=== PATIENT | female | born 1990 | race Caucasian/White ===

== ENCOUNTER 2020-07-17 23:31 | Inpatient (IN) ==
[2020-07-18] MEDS ORDERED: OXYTOCIN 30 UNITS/500 ML BAG IV PRN ×3 (00:10→09:24)
[2020-07-18] MEDS ORDERED: BUTORPHANOL TARTRATE 1 MG/ML VIAL IV PRN (00:12)
[2020-07-18] MEDS: LACTATED RINGER'S 1,000 ML IV PRN ×2 (00:26→02:38)
[2020-07-18 00:33] LABS: Hematocrit (blood only) 38.7 % (37-47); Hemoglobin 13.3 g/dL (12.0-16.0); Mean Corpuscular Hemoglobin 31.5 pg (25-34); Mean Corpuscular Volume 91.7 fL (80-100); Mean Platelet Volume 10.7 fL (7.4-10.4); Platelet Count 137 K/uL (130-400); RDW Coefficient of Variation 13.8 % (11.5-14.5); RDW Standard Deviation 45.7 fL (36.4-46.3); Red Blood Count 4.22 M/uL (4.2-5.4); White Blood Count 13.76 K/uL (4.8-10.8)
[2020-07-18 00:44] LABS: Mean Corpuscular Hgb Conc 34.4 g/dL (32-36)
[2020-07-18] MEDS ORDERED: fentaNYL 2MCG/ML ROPIV 1.25MG/ML 100 ML BAG EPI ONE (02:00)
[2020-07-18] MEDS ORDERED: fentaNYL citrate 100 MCG/2 ML VIAL ONE (02:00)
[2020-07-18] MEDS ORDERED: BUPIVACAINE 0.25% 30 ML VIAL ONE (02:00)
[2020-07-18] MEDS ORDERED: ePHEDrine sulfate 50 MG/ML AMP ONE (02:00)
[2020-07-18] MEDS ORDERED: LIDOCAINE HCL 2% MPF (LOCAL) 5 ML VIAL INFIL ONE (02:39)
--- NOTE | 2020-07-18 02:51 | Anesthesiology Consultation ---
Date of Service July 18, 2020 Assessment & Plan Chart Review Chart Review: Acceptable Risk for Labor Epidural Consults Requested none History Height/Weight Height: 5 ft 2 in Weight: 67.585 kg Allergies Allergy/AdvReac Type Severity Reaction Status Date / Time No Known Allergies Allergy Verified 07/13/20 08:59 Medications Home Medications Medication Instructions Recorded Confirmed Last Taken docusate sodium 100 mg capsule 100 mg PO DAILY PRN 11/28/19 07/18/20 07/15/20 08:00 prenat.vits,matt,zcs-zrur-asrsv 1 tab PO DAILY 11/28/19 07/18/20 07/17/20 09:00 Active Medications Generic Name Dose Route Start Last Admin Trade Name Freq PRN Reason Stop Dose Admin Lactated Ringer's 1,000 mls @ 125 mls/hr 07/18/20 00:10 07/18/20 02:38 Lr IV 07/20/20 00:09 125 mls/hr .Q8H PRN Administration L&D Protocol Protocol Past Medical History Medical History Encounter for anatomic survey Murmur, cardiac as a child; no recent problem Past Family History Family History Grandmother (Maternal) Diabetes Grandfather (Maternal) Diabetes Colorectal cancer Lung cancer Grandfather (Paternal) Lung cancer Mother Twin Other Lung disease Past Surgical History Surgical History S/P wisdom tooth extraction Social History Smoking Status: Never smoker Hx Alcohol Use: No Hx Substance Use: No Physical Exam Vital Signs Last Vital Signs Temp 36.5 C 07/17/20 23:47 Pulse 70 07/18/20 02:47 Resp 20 07/17/20 23:47 BP 105/62 07/18/20 02:47 Pulse Ox 100 07/18/20 02:45 Testing Laboratory Results 07/18/20 00:22
[2020-07-18] MEDS ORDERED: ePHEDrine sulfate 50 MG/ML AMP IV PRN (02:53)
[2020-07-18] MEDS ORDERED: fentaNYL 2MCG/ML ROPIV 1.25MG/ML 100 ML BAG EPI PRN (02:53)
[2020-07-18] MEDS ORDERED: DiphenhydrAMINE HCL 50 MG/ML VIAL IV PRN (02:53)
[2020-07-18] MEDS ORDERED: NALOXONE HCL 1 MG in SODIUM CHLORIDE 0.9% 1000ML 1,000 ML IV PRN (02:53)
[2020-07-18] MEDS ORDERED: NALOXONE HCL 0.4 MG/1 ML VIAL/CARP IV PRN (02:53)
--- NOTE | 2020-07-18 03:33 | History & Physical Report ---
Date of Service July 18, 2020 Assessment & Plan (1) Normal labor: (2) Supervision of normal first : (3) Need for rhogam due to Rh negative mother: pt has been admitted and comfortable with epidural. will see if arom helps labor pattern and if needed add pitocin augmentation. fhts categ 1. Admission and Anticipated Discharge Date Admission Date: July 18, 2020 History of Present Illness Primary Care Provider: Giovanny Griffith MD 30yo at 40+wks brad presents to L&D with above cc. She was here earlier yesterday with ctx and sent home at 1.5cm. She called with stronger ctx and came in and was 6cm per nurse. Desired and received epidural. PNC c/b 1. panorama, no result, amino normal, given confined placenta mosacism, rec to have 28wk growth us by mfm 2. rh neg, had rhogam, eval pp 3. postdates induction scheduled for 07/22 if undelivered. 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 Encounter for screening laboratory testing for COVID-19 virus Allergies Allergy/AdvReac Type Severity Reaction Status Date / Time No Known Allergies Allergy Verified 07/13/20 08:59 Home Medications Home Medications Medication Instructions Recorded Confirmed Type docusate sodium 100 mg capsule 100 mg PO DAILY PRN 11/28/19 07/18/20 History prenat.vits,matt,jet-roov-uhwky 1 tab PO DAILY 11/28/19 07/18/20 History Patient History Medical History Encounter for anatomic survey Murmur, cardiac as a child; no recent problem Surgical History S/P wisdom tooth extraction Family History Grandmother (Maternal) Diabetes Grandfather (Maternal) Diabetes Colorectal cancer Lung cancer Grandfather (Paternal) Lung cancer Mother Twin Other Lung disease Social History (Updated 11/28/19 @ 10:09 by Sun Johnson) Smoking Status: Never smoker Hx Alcohol Use: No Hx Substance Use: No Preferred Language: Belarusian Communication Ability: Effective Tableau Analyst Required: No Beliefs That Will Affect Care: None marital status: marital status details: Ruben Menjivar (29) [phone] Current Living Situation: Spouse Current Living Situation Comment: Lives with spouse, current occupational status: employed current occupation: PA @ [employer] Other Information That Helps Us Care for You: No Feels Safe at Home: Yes Assistive Devices: None Review of Systems see hpi Physical Exam Constitutional: WD/WN, vitals as above Psychiatric: A+Ox3, euthymic affect Genitourinary: OB Exam Abdomen: + estimated weight (6-7#) Manual OB Exam: + cervical dilation (7), + cervical effacement 100%, + station 0 and + amniotic fluid (AROM) clear OB Exam Monitor Tracing: + external FHT monitor used (110 mod variability, reactive), + external uterine monitor used (q2-5), + category I and + normal FHT variability Results & Data ([facility]) Vital Signs (Past 12 Hours) Vital Signs Temp Pulse Resp BP Pulse Ox 07/18/20 03:26 72 116/71 07/18/20 03:25 81 97 07/18/20 03:23 71 117/71 07/18/20 03:20 62 118/72 97 07/18/20 03:17 68 106/70 07/18/20 03:15 59 L 97 07/18/20 03:14 62 117/76 07/18/20 03:11 64 111/73 07/18/20 03:10 61 98 07/18/20 03:08 77 105/67 07/18/20 03:06 62 113/70 07/18/20 03:05 62 98 07/18/20 03:02 78 105/71 07/18/20 03:00 64 98 07/18/20 02:59 80 107/70 07/18/20 02:56 65 113/72 07/18/20 02:55 65 99 07/18/20 02:53 71 111/65 07/18/20 02:50 78 113/65 99 07/18/20 02:47 70 105/62 07/18/20 02:45 70 100 07/18/20 02:44 73 108/64 07/18/20 02:41 71 110/70 07/18/20 02:40 70 100 07/18/20 02:39 67 103/64 07/18/20 02:35 83 106/56 L 100 07/18/20 02:32 79 105/66 07/18/20 02:30 75 100 07/18/20 02:29 77 119/74 07/18/20 02:25 83 121/74 100 07/17/20 23:47 97.7 F 75 20 117/80 07/17/20 23:44 75 117/80 Coding Level of Care Code None Diagnoses Normal labor O80; Z37.9 Supervision of normal first Z34.00 Need for rhogam due to Rh negative mother Z29.13
--- NOTE | 2020-07-18 08:56 | Labor Progress Brief Note ---
Date of Service July 18, 2020 Subjective Reason For Note: Routine Evaluation feeling some lower pressure, not rectal pressure Assessment & Plan (1) Normal labor: (2) Need for rhogam due to Rh negative mother: begin 2nd stage. fhts categ 2. c/w pitocin. Admission and Anticipated Discharge Date Admission Date: July 18, 2020 Physical Exam Constitutional: WD/WN, vitals as above Genitourinary: Manual OB Exam: + cervical dilation 10 cm, + cervical effacement 100% and + station + 3 OB Exam Monitor Tracing: + external FHT monitor used (115 mod variability, variables, ), + external uterine monitor used (q2-5 pit at 5), + category II and + normal FHT variability Results & Data ([facility]) Vital Signs (Past 12 Hours) Vital Signs Temp Pulse Resp BP Pulse Ox 07/18/20 08:50 75 100 07/18/20 08:45 106 H 100 07/18/20 08:42 96 H 134/82 07/18/20 08:40 87 100 07/18/20 08:35 79 98 07/18/20 08:30 72 100 07/18/20 08:28 78 116/61 07/18/20 08:25 72 100 07/18/20 08:20 76 100 07/18/20 08:15 74 100 07/18/20 08:12 72 113/59 L 07/18/20 08:10 74 100 07/18/20 08:05 75 100 07/18/20 08:00 75 100 07/18/20 07:57 84 109/63 07/18/20 07:55 79 100 07/18/20 07:50 83 100 07/18/20 07:45 77 100 07/18/20 07:43 72 110/63 07/18/20 07:40 83 100 07/18/20 07:35 84 100 07/18/20 07:30 90 100 07/18/20 07:27 82 112/68 07/18/20 07:25 75 100 07/18/20 07:20 76 100 07/18/20 07:15 84 100 07/18/20 07:12 98.1 F 77 20 117/68 07/18/20 07:10 77 100 07/18/20 07:05 84 100 07/18/20 07:00 82 100 07/18/20 06:59 85 120/57 L 07/18/20 06:55 98 H 100 07/18/20 06:50 83 100 07/18/20 06:45 74 100 07/18/20 06:42 73 124/67 07/18/20 06:40 82 100 07/18/20 06:35 102 H 100 07/18/20 06:30 82 100 07/18/20 06:27 101 H 130/86 07/18/20 06:25 73 100 07/18/20 06:20 72 99 07/18/20 06:15 79 99 07/18/20 06:12 81 126/80 07/18/20 06:10 75 99 07/18/20 06:05 82 100 07/18/20 06:00 98.2 F 76 100 07/18/20 05:58 74 119/77 07/18/20 05:55 74 100 07/18/20 05:50 77 99 07/18/20 05:45 70 99 07/18/20 05:42 69 117/78 07/18/20 05:40 75 97 07/18/20 05:35 72 97 07/18/20 05:30 62 97 07/18/20 05:28 68 117/76 07/18/20 05:25 67 97 07/18/20 05:20 69 96 07/18/20 05:15 64 98 07/18/20 05:12 71 114/72 07/18/20 05:10 67 98 07/18/20 05:05 74 100 07/18/20 05:00 70 100 07/18/20 04:57 67 111/69 07/18/20 04:55 67 100 07/18/20 04:50 71 100 07/18/20 04:45 77 100 07/18/20 04:44 64 118/73 07/18/20 04:40 66 100 07/18/20 04:35 80 99 07/18/20 04:30 65 98 07/18/20 04:27 68 114/72 07/18/20 04:25 66 97 07/18/20 04:20 66 96 07/18/20 04:15 65 97 07/18/20 04:13 63 117/72 07/18/20 04:10 62 97 07/18/20 04:05 66 97 07/18/20 04:00 69 97 07/18/20 03:57 69 114/72 07/18/20 03:55 68 95 07/18/20 03:50 70 95 07/18/20 03:45 98.1 F 64 95 07/18/20 03:42 62 120/74 07/18/20 03:40 62 95 07/18/20 03:35 64 96 07/18/20 03:30 64 97 07/18/20 03:26 72 116/71 07/18/20 03:25 81 97 07/18/20 03:23 71 117/71 07/18/20 03:20 62 118/72 97 07/18/20 03:17 68 106/70 07/18/20 03:15 59 L 97 07/18/20 03:14 62 117/76 07/18/20 03:11 64 111/73 07/18/20 03:10 61 98 07/18/20 03:08 77 105/67 07/18/20 03:06 62 113/70 07/18/20 03:05 62 98 07/18/20 03:02 78 105/71 07/18/20 03:00 64 98 07/18/20 02:59 80 107/70 07/18/20 02:56 65 113/72 07/18/20 02:55 65 99 07/18/20 02:53 71 111/65 07/18/20 02:50 78 113/65 99 07/18/20 02:47 70 105/62 07/18/20 02:45 70 100 07/18/20 02:44 73 108/64 07/18/20 02:41 71 110/70 07/18/20 02:40 70 100 07/18/20 02:39 67 103/64 07/18/20 02:35 83 106/56 L 100 07/18/20 02:32 79 105/66 07/18/20 02:30 75 100 07/18/20 02:29 77 119/74 07/18/20 02:25 83 121/74 100 07/17/20 23:47 97.7 F 75 20 117/80 07/17/20 23:44 75 117/80 Coding Level of Care Code None Diagnoses Normal labor O80; Z37.9 Need for rhogam due to Rh negative mother Z29.13
[2020-07-18] MEDS ORDERED: HYDROCORTISONE ACETATE 25 MG SUPP PR PRN (09:24)
[2020-07-18] MEDS ORDERED: SUPERCREAM 0.870% 15 GM JAR EXT PRN (09:24)
[2020-07-18] MEDS ORDERED: DIPHTHERIA/TETANUS/PERTUSSIS 0.5 ML SYR/VIAL IM ONE (09:24)
[2020-07-18] MEDS ORDERED: ACETAMINOPHEN 325 MG TAB PO PRN (09:24)
[2020-07-18] MEDS ORDERED: OXYCODONE/ACETAMINOPHEN 5mg/325mg TAB PO PRN (09:24)
[2020-07-18] MEDS ORDERED: BENZOCAINE 20% AER SPR 82.5 GM CAN EXT PRN (09:24)
--- NOTE | 2020-07-18 09:26 | Delivery Summary ---
Vaginal Delivery Summary Date of Service July 18, 2020 The patient dilated to complete and pushed to deliver a viable female A pgars 8 and 9 via over partial 3rd degree perineal laceration. Mouth and nose bulb suctioned at perineum. Shoulders and body delivered with ease. Infant was vigorous and crying at . Cord clamped at 30 seconds of life and infant to maternal abdomen where the cord was then doubly clamped and cut. Placenta delivered spontaneously and intact, three-vessel cord. Hemostasis achieved with dilute pitocin and uterine massage. Cervix and sulci intact. Laceration repaired in layers with 2-0 and 3-0 vicryl in usual fashion. EBL 300 cc. Mother and baby stable recovery. [facility] Vaginal Delivery Charge Vaginal Delivery Codes: 22001 global code for the antepartum, delivery, and post-
[2020-07-18] MEDS ORDERED: OXYTOCIN 20 UNITS in LACTATED RINGER'S 1,000 ML IV SCH (10:15)
--- NOTE | 2020-07-18 10:50 | Anesthesia Procedure Note ---
Date of Service July 18, 2020 Anesthesia Post Epidural Note Vital Signs Vital Signs: Temp Pulse Resp BP Pulse Ox 98.1 F 76 20 104/63 100 07/18/20 07:12 07/18/20 10:45 07/18/20 07:12 07/18/20 10:36 07/18/20 10:45 Notes Mental Status: alert / awake / arousable and participated in evaluation Nausea / Vomiting: adequately controlled Pain: adequately controlled Airway Patency, RR, SpO2: stable & adequate BP & HR: stable & adequate Hydration State: stable & adequate Neuraxial Anesthesia: was administered and sensory block is resolving Anesthetic Complications: no major complications apparent and Pt Satisfied with anesthetic care Epidural: Removed without complications and With tip intact
[2020-07-18] MEDS: IBUPROFEN 600 MG TAB PO PRN (18:36)
[2020-07-18] MEDS: DOCUSATE SODIUM 100 MG CAP PO SCH (20:51)
--- NOTE | 2020-07-19 06:46 | Obstetrical Progress Note ---
Date of Service July 19, 2020 Assessment & Plan (1) Normal labor: (2) Need for rhogam due to Rh negative mother: stable, doing well. baby rh neg. she may want to go home later today if breast feeding improves today. instructions reviewed in case. Day #:: 1 Subjective Ambulation: ambulating normally Voiding: no voiding problems Diet Tolerance:: regular diet Lochia:: Small Feeding Type:: breast feeding she does not feel pain in bottom, just achy all over. Physical Exam Constitutional WD/WN, vitals as above Respiratory normal respiratory effort, lungs clear to auscultation Cardiovascular Rate/Rhythm: regular rate and regular rhythm Gastrointestinal (Abdomen) Inspection/Auscultation: abdomen normal to inspection Percussion/Palpation: abdomen soft Fundus firm 2cm down Musculoskeletal nt calves no edema Neurologic grossly normal Psychiatric A+Ox3, euthymic affect Results & Data ([facility]) Vital Signs (Past 12 Hours) Vital Signs Temp Pulse Resp BP Pulse Ox 07/19/20 04:10 97.5 F L 60 16 103/63 100 07/18/20 23:40 97.9 F 66 16 109/69 99 07/18/20 18:50 98.1 F 71 16 118/76 100
[2020-07-19] MEDS: IBUPROFEN 600 MG TAB PO PRN ×2 (08:38→20:12)
[2020-07-19] MEDS: DOCUSATE SODIUM 100 MG CAP PO SCH ×2 (08:38→20:11)
--- NOTE | 2020-07-20 05:15 | Obstetrical Progress Note ---
Date of Service July 20, 2020 Assessment & Plan (1) Supervision of normal first : S/p Day 2 - Feels well today. Eating well, voiding well, ambulating well. - Pain well-controlled with ibuprofen 600mg Q4H PRN. - Vital signs reviewed and WNL. - Hemoglobin reviewed. 13.3 (pre-) - Blood Type: A- (s/p Rhogam at 28 weeks), antibody negative, GBS negative, Rubella Immune, COVID-19 negative - Continue routine post- care: encourage ambulation, monitor and control pain with Motrin PRN, continue regular OB diet, monitor lochia - Encourage breast feeding. - Pt counselled on discharge instructions today - After discharge, will have 6-wk follow-up with Dr. Beckett Admission and Anticipated Discharge Date Admission Date: July 18, 2020 Supervising Physician Co-Signing Physician Notes Resident Physician Supervision Note: I was present with Dr. Mccauley during the history and exam. I discussed the case with the resident and agree with the findings and plan as documented in the note. Any exceptions or clarifications are listed here: None. Doing well and meeting all pp milestones. VSS, exam wnl. Stable for discharge home Documented By: Fany Sahu MD Subjective HPI Mariangel Menjivar is a 30 y/o female who is PPD 2 spontaneous vaginal delivery at 40 4/7 weeks. She reports feeling well overall this morning. No abdominal cramping and 0/10 pain well managed on analgesics. Voiding well. Tolerating meals overnight without difficulty. Patient has been able to ambulate some. passing gas and had bowel movement. Has persistent lochia with some improvement this morning. Currently . Review of Systems Review of Systems: ROS Denies fever or chills. Denies shortness of breath or cough. Denies chest pain. Denies breast pain. Denies dysuria. Denies leg pain or leg swelling. Physical Exam Physical Exam: PE General: Alert, oriented. No acute distress. Cardiac: Regular rate and rhythm. No murmurs. Respiratory: Clear to auscultation bilaterally a/p, no wheezes/rales/rhonchi. No increased work of breathing. Symmetrical chest rise. No respiratory distress. Abdomen: Soft, nontender, nondistended. Bowel sounds present. Uterus: Uterine fundus firm, palpable 2 cm below umbilicus. Lower Extremities: No lower extremity edema or swelling. No deep calf pain. Reinier's negative bilaterally. Results & Data ([facility]) Vital Signs (Past 12 Hours) Vital Signs Temp Pulse Resp BP 07/19/20 23:45 36.8 C 62 18 108/69 07/19/20 20:50 36.9 C 74 18 114/74 Resident Activity Tracking Resident Involvement: Resident Care Provided Care Provided: OB Delivery
[2020-07-20] MEDS: IBUPROFEN 600 MG TAB PO PRN (08:55)
[2020-07-20] MEDS: DOCUSATE SODIUM 100 MG CAP PO SCH (08:55)
== END 2020-07-20 13:12 | disposition home or self-care (01) | DRG 768 ==
LOC: OPB 23:31 → 4S1 23:32 → 4S2 07-18 13:53

== ENCOUNTER 2023-09-14 19:27 | Inpatient (IN) ==
[2023-09-14] MEDS ORDERED: OXYTOCIN 30 UNITS/NSS 30 UNITS/500 ML BAG IV PRN ×2 (19:59→23:26)
[2023-09-14] MEDS ORDERED: LACTATED RINGER'S 1,000 ML IV PRN (19:59)
[2023-09-14] MEDS ORDERED: LIDOCAINE 1% LOCAL 20 ML VIAL INFIL PRN (19:59)
--- NOTE | 2023-09-14 20:02 | History & Physical Report ---
Date of Service September 14, 2023 Assessment & Plan (1) Normal labor: Plan admit for labor, expectantly manage. fetus category one. epidural on demand. anticipate . History of Present Illness Chief Complaint: contractions Primary Care Provider: Giovanny Griffith MD Patient is a 33yowf with iup at 40 0/7 weeks who presents to labor and delivery complaining of increasing, painful contractions. Notes no vb/lof. +fm. and Delivery Plans Rh neg -needs rhogam -Rhogam given 06/22/23 - SP OB Labs: Blood Type A Negative 02/16/23 Antibody Screen NEGATIVE 06/22/23 Hemoglobin 12.2 g/dl (12.0-16.0) 06/22/23 Hematocrit 35.1 % (37.0-47.0) L 06/22/23 Mean Corpuscular Volume 90.5 fL (80.0-100.0) 02/16/23 Platelet Count 199 K/uL (130-400) 02/16/23 Rubella IgG Antibody Immune (Immune) 02/16/23 Rapid Plasma Reagin Nonreactive (Nonreactive) 02/16/23 Hepatitis B Surface Antigen Neg (Neg) 12/05/19 Hepatitis B Surface Antigen. NON-REACTIVE (NON-REACTIVE) 02/16/23 Hepatitis C Antibody (EIA) NON-REACTIVE (NON-REACTIVE) 02/16/23 HIV (1&2) Ab and P24 Ag, 4th Gener Neg (Neg) 12/05/19 HIV (1&2) Ag and Ab Confirmation NON-REACTIVE (NON-REACTIVE) 02/16/23 Glucose 1 Hour 50 gm Load 119 mg/dl (70-130) 06/22/23 Maternal Serum Alpha Fetoprotein 26.6 ng/mL 01/28/20 OB Optional Labs: Chlamydia trachomatis RNA Not Detected (NotDetected) 02/16/23 Neisseria gonorrhoeae RNA Not Detected (NotDetected) 02/16/23 Alpha Fetoprotein Triple Screen SEE NOTE 01/28/20 Labs Reviewed: neg cf/sma 2020 - sln Declines cfdna--mln gbs neg afp neg Allergies Allergy/AdvReac Type Severity Reaction Status Date / Time No Known Allergies Allergy Verified 09/14/23 19:39 Home Medications Medication Instructions Recorded Confirmed Type docusate sodium 100 mg capsule 100 mg PO DAILY PRN Constipation 11/28/19 09/14/23 History (Colace) prenat.vits,matt,lkv-ruhn-afcit 1 tab PO QAM 05/30/22 09/14/23 History Patient History Medical History (Updated 09/14/23 @ 20:06 by Sloane Bruce MD, FACOG) COVID Bleeding in early Asthma excercise induced asthma while in highschool, no issues since, requires no meds History of chicken pox Need for rhogam due to Rh negative mother Murmur, cardiac as a child; no recent problem Surgical History S/P dilation and curettage S/P wisdom tooth extraction Family History Grandmother (Maternal) Diabetes Grandfather (Maternal) Diabetes Colorectal cancer Grandfather (Paternal) Lung cancer Mother Twin Grandmother (Paternal) Lung disease Other Cancer Denies family history of Ovarian cancer Breast cancer Social History Smoking Status: Never smoker Second Hand Exposure: No; Do You Dip or Chew Tobacco: No; Hx Alcohol Use: No Hx Substance Use: No Preferred Language: Bulgarian Communication Ability: Effective Visual Impairment: No Limitations Hearing Ability: Normal Care Information Associate Required: No Beliefs That Will Affect Care: None marital status: marital status details: Ruben Menjivar (31) [phone] Current Living Situation: Spouse Current Living Situation Comment: Lives with spouse, and child. current occupational status: employed current occupation: PA @ [employer] Other Information That Helps Us Care for You: No Feels Safe at Home: Yes Safety Concerns: Feels Safe At This Time Assistive Devices: Contacts and Glasses OB History Past Pregnancies Del. Date GA wks Lbr Lgth wt Sex Type del Anes Place Del Prov ? Comment 07/18/20 40 6lbs 7.9oz F Ep idural [facility] Dr Beckett No 05/26/22 10 Aborted-Spontaneous 08/22/22 5 Aborted-Spontaneous [employer] History noncontributory Physical Exam Constitutional: WD/WN, vitals as above Gastrointestinal (Abdomen): soft, gravid, nt Psychiatric: A+Ox3, euthymic affect Genitourinary: cx--4-5/90/-s toco==q3-5min efm--110-115 with mod variabiltiy, accels to 160s, no decels Results & Data Vital Signs (Past 12 Hours) Vital Signs Temp Pulse Resp BP 09/14/23 19:40 36.8 C 66 18 124/80 09/14/23 19:35 66 124/80 Coding Level of Care Code None Diagnoses Normal labor O80; Z37.9
[2023-09-14 20:33] LABS: Hemoglobin 12.9 g/dl (12.0-16.0); Mean Corpuscular Hemoglobin 30.5 pg (25.0-34.0); Mean Corpuscular Hgb Conc 33.9 g/dL (32.0-36.0); Mean Corpuscular Volume 89.8 fL (80.0-100.0); Mean Platelet Volume 10.2 fL (9.4-12.4); Platelet Count 153 K/uL (130-400); RDW Coefficient of Variation 13.8 % (11.5-14.5); Red Blood Count 4.23 M/uL (4.20-5.40); White Blood Count 12.36 K/ul (4.8-10.8)
[2023-09-14] MEDS ORDERED: fentaNYL citrate PF 100 MCG/2 ML VIAL ONE (20:41)
[2023-09-14] MEDS ORDERED: ePHEDrine sulfate 50 MG/ML AMP ONE (20:41)
[2023-09-14] MEDS ORDERED: BUPIVACAINE 0.25% PF 30 ML VIAL ONE (20:41)
[2023-09-14] MEDS ORDERED: LIDOCAINE 2%/EPINEPHRINE 1:200,000 20 ML PF ONE (20:41)
[2023-09-14] MEDS ORDERED: fentANYL 2 MCG/ML BUPIVacaine 0.125%-NSS 100ML BAG ONE (20:41)
[2023-09-14] MEDS ORDERED: SODIUM CHLORIDE 0.9% PF INJ 10 ML VIAL ONE (20:41)
[2023-09-14] MEDS ORDERED: ePHEDrine sulfate 50 MG/ML AMP IV PRN (20:57)
[2023-09-14] MEDS ORDERED: BUPIVACAINE 0.25% PF 30 ML VIAL EPI STA (20:57)
[2023-09-14] MEDS ORDERED: LIDOCAINE 2%/EPINEPHRINE 1:200,000 20 ML PF EPI STA (20:57)
[2023-09-14] MEDS ORDERED: ONDANSETRON INJ 2 MG/ML 2 ML VIAL IV PRN (20:57)
[2023-09-14] MEDS ORDERED: fentaNYL citrate PF 100 MCG/2 ML VIAL EPI STA (20:57)
[2023-09-14] MEDS ORDERED: NALOXONE HCL 0.4 MG/1 ML VIAL/CARP IV PRN (20:57)
[2023-09-14] MEDS ORDERED: NALOXONE HCL 1 MG in SODIUM CHLORIDE 0.9% 1,000 ML IV PRN (20:57)
[2023-09-14] MEDS ORDERED: fentANYL 2 MCG/ML BUPIVacaine 0.125%-NSS 100ML BAG EPI PRN (20:57)
[2023-09-14] MEDS ORDERED: LIDOCAINE 2% MPF LOCAL 5 ML VIAL EPI PRN (20:57)
[2023-09-14] MEDS ORDERED: BUPIVACAINE 0.25% PF 30 ML VIAL EPI PRN (20:57)
[2023-09-14] MEDS ORDERED: SODIUM CHLORIDE 0.9% PF INJ 10 ML VIAL EPI STA (20:57)
[2023-09-14] MEDS ORDERED: diphenhydrAMINE 50 MG/ML VIAL IV PRN (20:57)
[2023-09-14] MEDS ORDERED: fentaNYL citrate PF 100 MCG/2 ML VIAL EPI PRN (20:57)
[2023-09-14] MEDS ORDERED: ROPIVACAINE 0.5% PF 5 MG/ML 20 ML VIAL EPI PRN (20:57)
[2023-09-14] MEDS ORDERED: SODIUM CHLORIDE 0.9% PF INJ 10 ML VIAL EPI PRN (20:57)
[2023-09-14] MEDS ORDERED: NALBUPHINE HCL 5 MG in SYRINGE 0 ML IV PRN (20:57)
--- NOTE | 2023-09-14 20:59 | Anesthesiology Consultation ---
Date of Service September 14, 2023 Assessment & Plan (1) Encounter for pre-operative examination: Chart Review Chart Review: Patient NOT seen in Pre Admission Testing and Acceptable Risk for Labor Epidural Consults Requested none History Height/Weight Height: 5 ft 2 in Weight: 68.039 kg Allergies Allergy/AdvReac Type Severity Reaction Status Date / Time No Known Allergies Allergy Verified 09/14/23 19:39 Medications Home Medications Medication Instructions Recorded Confirmed Last Taken docusate sodium 100 mg capsule 100 mg PO DAILY PRN Constipation 11/28/19 09/14/23 09/13/23 21:00 (Colace) prenat.vits,matt,uqx-aukp-smjse 1 tab PO QAM 05/30/22 09/14/23 09/13/23 21:00 Active Medications Generic Name Dose Route Start Last Admin Trade Name Freq PRN Reason Stop Dose Admin Lactated Ringer's 1,000 mls @ 125 mls/hr 09/14/23 19:59 09/14/23 20:52 Lr IV 09/16/23 19:58 125 mls/hr .Q8H PRN Infusion L&D Protocol Protocol Past Medical History Medical History (Updated 09/14/23 @ 20:59 by Erasmo Flynn MD) Encounter for pre-operative examination COVID Bleeding in early Asthma excercise induced asthma while in highschool, no issues since, requires no meds History of chicken pox Need for rhogam due to Rh negative mother Murmur, cardiac as a child; no recent problem Exercise / Class Metabolic Activity II 4-5 Yardwork/Stairs/Walk up hill Past Family History Family History Grandmother (Maternal) Diabetes Grandfather (Maternal) Diabetes Colorectal cancer Grandfather (Paternal) Lung cancer Mother Twin Grandmother (Paternal) Lung disease Other Cancer Denies family history of Ovarian cancer Breast cancer Past Surgical History Surgical History S/P dilation and curettage S/P wisdom tooth extraction Past Anesthesia History No Hx of Anesthesia Complications and No Family Hx of Anesthesia Complications History of PONV No Hx of PONV and No Hx of Motion Sickness Social History Smoking Status: Never smoker Do You Dip or Chew Tobacco: No Hx Alcohol Use: No Hx Substance Use: No substance use type: does not use Physical Exam Vital Signs Last Vital Signs Temp 36.8 C 09/14/23 19:40 Pulse 85 09/14/23 21:18 Resp 18 09/14/23 19:40 BP 125/78 09/14/23 21:17 Pulse Ox 99 09/14/23 21:18 Testing Laboratory Results 09/14/23 20:19
--- NOTE | 2023-09-14 23:13 | Delivery Summary ---
Vaginal Delivery Summary Date of Service September 14, 2023 Vaginal Delivery Summary and 2nd Degree LAC Pre-operative Diagnosis: at 40 weeks labor Post-operative Diagnosis: same Procedure: epidural arom second degree lac and reapir EBL: 350cc Anesthesia: epidural Procedure: Patient presented to labor and delivery in active labor. FHT baseline in 105-110 range. She walked for a bit and then got an epidural. shortly after epidural placed, she srom for clear fluid. Progressed to c/c/+2 station. The patient pushed for 15 min to deliver a viable male infant in alberta position. The nose and mouth were bulb suctioned on the perineum and the rest of the infant was then delivered without difficulty. The baby was vigorous. The nose and mouth were again bulb suctioned and the was placed in the maternal abdomen for drying and attention. Cord was clamped and cut at one minute of life. Cord blood and segment obtained. Placenta delivered spontaneous, intact with a three vessel cord. Cervix/sulci/rectum were intact. A second degree perineal laceration was repaired in the normal standard fashion. Hemostasis obtained with dilute pitocin and fundal massage. Apgars were 8/9. Mother and baby doing well at the end of the delivery. [facility] Vaginal Delivery Charge Delivery Type Details: and 2nd Degree LAC
[2023-09-14] MEDS ORDERED: ACETAMINOPHEN 325 MG TAB PO PRN (23:26)
[2023-09-14] MEDS ORDERED: DIPHTHERIA/TETANUS/PERTUSSIS Vaccine (Tdap, Age 7+yrs) 0.5mL SYR/VL IM ONE (23:26)
[2023-09-14] MEDS ORDERED: oxyCODONE/ACETAMINOPHEN 5mg/325mg TAB PO PRN (23:26)
[2023-09-14] MEDS ORDERED: HYDROCORTISONE ACETATE 25 MG SUPP PR PRN (23:26)
[2023-09-14] MEDS ORDERED: bisacodyL 10 MG SUPP PR PRN (23:26)
--- NOTE | 2023-09-15 00:53 | Anesthesia Procedure Note ---
Date of Service September 15, 2023 Anesthesia Post Epidural Note Vital Signs Vital Signs: Temp Pulse Resp BP Pulse Ox 36.5 C 71 20 105/61 99 09/14/23 22:38 09/15/23 00:38 09/15/23 00:40 09/15/23 00:38 09/14/23 23:18 Pain Intensity Abdomen: Pain Intensity: 0 Notes Mental Status: alert / awake / arousable and participated in evaluation Patient Amnestic to Procedure: No Nausea / Vomiting: adequately controlled Pain: adequately controlled Airway Patency, RR, SpO2: stable & adequate BP & HR: stable & adequate Hydration State: stable & adequate Neuraxial Anesthesia: was administered and sensory block is resolving Anesthetic Complications: no major complications apparent and Pt Satisfied with anesthetic care Epidural: Removed without complications and With tip intact
[2023-09-15] MEDS: BENZOCAINE 20% SPRY 85 APPLN/85 GM CAN EXT PRN ×2 (04:05→16:49)
[2023-09-15] MEDS: IBUPROFEN 600 MG TAB PO PRN ×2 (07:33→15:47)
[2023-09-15] MEDS: DOCUSATE SODIUM 100 MG CAP PO SCH ×2 (07:33→20:18)
[2023-09-15] MEDS: PRENATAL VITAMIN 1 TAB PO SCH (07:33)
--- NOTE | 2023-09-15 07:54 | Obstetrical Progress Note ---
Date of Service September 15, 2023 Assessment & Plan (1) Encounter for assessment: Plan Doing well. Routine care. Day #:: 0 Subjective Ambulation: ambulating normally Voiding: no voiding problems Passing Gas:: No Diet Tolerance:: regular diet Lochia:: Small Feeding Type:: breast feeding Physical Exam Constitutional WD/WN, vitals as above Cardiovascular Extremities: no calf tenderness and no edema Gastrointestinal (Abdomen) soft, nt, nd ff/nt 2 below u Psychiatric A+Ox3, euthymic affect Results & Data Vital Signs (Past 12 Hours) Vital Signs Temp Pulse Pulse Pulse Resp BP BP 09/15/23 07:35 36.7 C 70 18 106/72 09/15/23 04:00 36.6 C 69 18 104/69 09/15/23 01:45 36.6 C 71 18 106/71 09/15/23 01:10 18 09/15/23 01:08 68 104/63 09/15/23 00:40 20 09/15/23 00:38 71 105/61 09/15/23 00:10 20 09/15/23 00:07 75 98/53 L 09/14/23 23:55 18 09/14/23 23:52 73 09/14/23 23:52 106/61 09/14/23 23:40 18 09/14/23 23:38 75 09/14/23 23:38 105/58 L 09/14/23 23:30 77 09/14/23 23:30 109/61 09/14/23 23:25 18 09/14/23 23:18 09/14/23 23:18 88 09/14/23 23:13 09/14/23 23:13 89 09/14/23 23:10 18 09/14/23 23:08 09/14/23 23:08 85 09/14/23 23:08 88 09/14/23 23:08 125/64 09/14/23 23:03 09/14/23 23:03 85 09/14/23 22:58 09/14/23 22:58 90 09/14/23 22:53 09/14/23 22:53 103 H 09/14/23 22:48 09/14/23 22:48 91 H 09/14/23 22:43 09/14/23 22:43 101 H 09/14/23 22:40 91 H 09/14/23 22:40 130/72 09/14/23 22:38 36.5 C 09/14/23 22:38 09/14/23 22:38 86 09/14/23 22:33 09/14/23 22:33 95 H 09/14/23 22:30 18 09/14/23 22:30 18 09/14/23 22:28 09/14/23 22:28 85 09/14/23 22:25 68 09/14/23 22:25 113/70 09/14/23 22:23 09/14/23 22:23 82 09/14/23 22:18 09/14/23 22:18 74 09/14/23 22:13 09/14/23 22:13 73 09/14/23 22:09 74 09/14/23 22:09 117/67 09/14/23 22:08 09/14/23 22:08 73 09/14/23 22:03 09/14/23 22:03 70 09/14/23 22:03 67 09/14/23 22:03 116/73 09/14/23 22:00 18 09/14/23 22:00 18 09/14/23 21:58 09/14/23 21:58 75 09/14/23 21:58 116/72 09/14/23 21:55 67 09/14/23 21:55 109/69 09/14/23 21:53 09/14/23 21:53 74 09/14/23 21:49 73 09/14/23 21:49 138/81 09/14/23 21:48 09/14/23 21:48 76 09/14/23 21:44 75 09/14/23 21:44 109/59 L 09/14/23 21:43 09/14/23 21:43 82 09/14/23 21:38 09/14/23 21:38 70 09/14/23 21:38 124/75 09/14/23 21:37 09/14/23 21:37 82 09/14/23 21:35 82 09/14/23 21:35 106/69 09/14/23 21:33 09/14/23 21:33 80 09/14/23 21:33 64 09/14/23 21:33 110/74 09/14/23 21:31 90 09/14/23 21:31 105/64 09/14/23 21:29 100 H 09/14/23 21:29 107/66 09/14/23 21:28 09/14/23 21:28 87 09/14/23 21:27 72 09/14/23 21:27 107/71 09/14/23 21:25 70 09/14/23 21:25 109/69 09/14/23 21:23 09/14/23 21:23 75 09/14/23 21:23 72 09/14/23 21:23 109/70 09/14/23 21:21 80 09/14/23 21:21 113/77 09/14/23 21:19 74 09/14/23 21:19 112/71 09/14/23 21:18 09/14/23 21:18 85 09/14/23 21:17 73 09/14/23 21:17 125/78 09/14/23 21:13 09/14/23 21:13 77 09/14/23 21:08 09/14/23 21:08 75 09/14/23 21:03 09/14/23 21:03 80 Pulse Ox O2 Del Method 09/15/23 07:35 97 Room Air 09/15/23 04:00 97 Room Air 09/15/23 01:45 97 Room Air 09/15/23 01:10 09/15/23 01:08 09/15/23 00:40 09/15/23 00:38 09/15/23 00:10 09/15/23 00:07 09/14/23 23:55 09/14/23 23:52 09/14/23 23:52 09/14/23 23:40 09/14/23 23:38 09/14/23 23:38 09/14/23 23:30 09/14/23 23:30 09/14/23 23:25 09/14/23 23:18 99 09/14/23 23:18 09/14/23 23:13 100 09/14/23 23:13 09/14/23 23:10 09/14/23 23:08 99 09/14/23 23:08 09/14/23 23:08 09/14/23 23:08 09/14/23 23:03 99 09/14/23 23:03 09/14/23 22:58 97 09/14/23 22:58 09/14/23 22:53 100 09/14/23 22:53 09/14/23 22:48 100 09/14/23 22:48 09/14/23 22:43 100 09/14/23 22:43 09/14/23 22:40 09/14/23 22:40 09/14/23 22:38 09/14/23 22:38 100 09/14/23 22:38 09/14/23 22:33 100 09/14/23 22:33 09/14/23 22:30 09/14/23 22:30 09/14/23 22:28 100 09/14/23 22:28 09/14/23 22:25 09/14/23 22:25 09/14/23 22:23 100 09/14/23 22:23 09/14/23 22:18 100 09/14/23 22:18 09/14/23 22:13 100 09/14/23 22:13 09/14/23 22:09 09/14/23 22:09 09/14/23 22:08 100 09/14/23 22:08 09/14/23 22:03 100 09/14/23 22:03 09/14/23 22:03 09/14/23 22:03 09/14/23 22:00 09/14/23 22:00 09/14/23 21:58 100 09/14/23 21:58 09/14/23 21:58 09/14/23 21:55 09/14/23 21:55 09/14/23 21:53 100 09/14/23 21:53 09/14/23 21:49 09/14/23 21:49 09/14/23 21:48 100 09/14/23 21:48 09/14/23 21:44 09/14/23 21:44 09/14/23 21:43 98 09/14/23 21:43 09/14/23 21:38 100 09/14/23 21:38 09/14/23 21:38 09/14/23 21:37 91 09/14/23 21:37 09/14/23 21:35 09/14/23 21:35 09/14/23 21:33 99 09/14/23 21:33 09/14/23 21:33 09/14/23 21:33 09/14/23 21:31 09/14/23 21:31 09/14/23 21:29 09/14/23 21:29 09/14/23 21:28 99 09/14/23 21:28 09/14/23 21:27 09/14/23 21:27 09/14/23 21:25 09/14/23 21:25 09/14/23 21:23 100 09/14/23 21:23 09/14/23 21:23 09/14/23 21:23 09/14/23 21:21 09/14/23 21:21 09/14/23 21:19 09/14/23 21:19 09/14/23 21:18 99 09/14/23 21:18 09/14/23 21:17 09/14/23 21:17 09/14/23 21:13 100 09/14/23 21:13 09/14/23 21:08 100 09/14/23 21:08 09/14/23 21:03 100 09/14/23 21:03
[2023-09-15 09:47] LABS: Hematocrit (blood only) 35.2 % (37.0-47.0); Hemoglobin 12.2 g/dl (12.0-16.0)
[2023-09-15] MEDS ORDERED: bisacodyL 5 MG TABEC PO SCH (20:00)
[2023-09-16] MEDS: IBUPROFEN 600 MG TAB PO PRN ×2 (03:59→08:21)
--- NOTE | 2023-09-16 07:27 | Obstetrical Progress Note ---
Date of Service September 16, 2023 Assessment & Plan (1) Encounter for assessment: PPD 2, no ext pain, min bleeding. D/C Subjective Ambulation: ambulating normally Voiding: no voiding problems Passing Gas:: Yes Diet Tolerance:: regular diet Lochia:: Small Physical Exam Constitutional WD/WN, vitals as above well developed and well nourished Respiratory normal respiratory effort, lungs clear to auscultation normal respiratory effort Cardiovascular RRR, no murmur, no edema Gastrointestinal (Abdomen) normal bowel sounds, soft, nontender, no hepatosplenomegaly Results & Data Vital Signs (Past 12 Hours) Vital Signs Temp Pulse Resp BP Pulse Ox O2 Del Method 09/16/23 07:15 98.1 F 68 16 109/72 99 Room Air 09/15/23 23:15 97.9 F 72 18 106/74 98 Room Air 09/15/23 20:00 98.1 F 70 18 109/74 97 Room Air
[2023-09-16] MEDS: PRENATAL VITAMIN 1 TAB PO SCH (08:21)
[2023-09-16] MEDS: DOCUSATE SODIUM 100 MG CAP PO SCH (08:21)
== END 2023-09-16 10:55 | disposition home or self-care (01) | DRG 807 ==
LOC: OPB 19:27 → 4S1 19:29 → 4E2 09-15 01:48